=== PATIENT | female | born 1930 | race Caucasian/White ===

== ENCOUNTER 2018-11-24 16:54 | Emergency (ER) | payer MEDICARE, OTHER ==
[~2018-11-24] VITALS: Ht 170.2 cm; Wt 72.6 kg
[2018-11-24] MEDS ORDERED: ASPIRIN 81 MG CHEW (CHILDREN'S ASA) ONE (16:56)
[2018-11-24 17:18] LABS: HEMATOCRIT 42 % (35-52); LYMPHOCYTES % (AUTO) 21 % (12-44); MEAN CORPUSCULAR HEMOGLOBIN 26 PG (25-34); MEAN CORPUSCULAR HGB CONC 31 G/DL (32-36); MEAN CORPUSCULAR VOLUME 84 FL (80-99); MEAN PLATELET VOLUME 10.7 FL (7.4-10.4); MONOCYTES % (AUTO) 6 % (0-12); PLATELET COUNT 310 10^3/uL (130-400); RED CELL DISTRIBUTION WIDTH 17.1 % (10.0-14.5); WHITE BLOOD COUNT 9.7 10^3/uL (4.3-11.0)
[2018-11-24 17:19] LABS: BASOPHILS % (AUTO) 0 % (0-10); EOSINOPHILS # (AUTO) 0.1 10^3/uL (0.0-0.3); EOSINOPHILS % (AUTO) 1 % (0-10); LYMPHOCYTES # (AUTO) 2.1 X 10^3 (1.0-4.0); MONOCYTES # (AUTO) 0.6 X 10^3 (0.0-1.0); NEUTROPHILS # (AUTO) 6.9 X 10^3 (1.8-7.8); NEUTROPHILS % (AUTO) 72 % (42-75)
--- NOTE | 2018-11-24 17:25 | Diagnostic Imaging Report ---
INDICATION: Cough and dyspnea. PA and lateral views of the chest are obtained. There is no previous study for comparison. FINDINGS: There is mild cardiomegaly. There is air trapping bilaterally with prominence of interstitial markings. There is mild blunting of the left costophrenic sulcus. Left anterior chest wall pacemaker device is noted. There is diffuse lumbar and thoracic spondylosis. Degenerative changes are also seen in the shoulder joints. 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 Dictated by: Dictated on workstation # [id number]
--- NOTE | 2018-11-24 17:29 | Diagnostic Imaging Report ---
PROCEDURE: CT head without contrast. TECHNIQUE: Multiple contiguous axial images were obtained through the brain without the use of intravenous contrast. Auto Exposure Controls were utilized during the CT exam to meet ALARA standards for radiation dose reduction. INDICATION: Weakness and dyspnea. FINDINGS: Study is limited by motion artifact. Ventricles and sulci are prominent. There is mild low density within the deep white matter of both cerebral hemispheres with focal region of decreased attenuation in the region of anterior limb of left internal capsule adjacent to head of left caudate nucleus. This may represent lacunar infarct, however, has appearance of subacute or chronic lesion. There is no evidence of intracranial hemorrhage. Calvarium is intact, and the visualized paranasal sinuses are clear. IMPRESSION: Involutional findings in the brain. 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 This is likely subacute or older; however, clinical correlation is recommended. Dictated by: Dictated on workstation # [id number]
--- NOTE | 2018-11-24 17:29 | ED General ---
General Chief Complaint: Respiratory Problems Stated Complaint: SOB,HIGH BP Nursing Triage Note: PATIENT REPORTS SUDDEN ONSET OF SHORTNESS OF BREATH THIS AFTERNOON. Nursing Sepsis Screen: No Definite Risk History of Present Illness Date Seen by Provider: November 24, 2018 Time Seen by Provider: 17:00 Initial Comments 88-year-old female presents with some lightheadedness, dizziness, generalized malaise, shortness of breath. She reports that she knows that this afternoon. That she has a pacemaker was concerned that maybe her pacemaker battery was not working. She had a brief episode yesterday. She denies chest pain. She denies any fever, cough, chills or other systemic complaints. Allergies and Home Medications Allergies Coded Allergies: JOSE Inhibitors (Verified Allergy, Unknown, itching, nausea and vomiting, ) Beta-Blockers (Beta-Adrenergic Bloc (Verified Allergy, Unknown, swelling, headache, 11/24/18) aliskiren (Verified Allergy, Unknown, itching,muscle pain, 11/24/18) warfarin (Verified Allergy, Unknown, rash,itching,dizziness, 11/24/18) Sulfa (Sulfonamide Antibiotics) (Verified Adverse Reaction, Unknown, nausea and vomiting, 11/24/18) Patient Home Medication List Home Medication List Reviewed: Yes Review of Systems Review of Systems Constitutional: No diaphoresis; dizziness, malaise, weakness EENTM: see HPI Respiratory: dyspnea on exertion, short of breath Cardiovascular: No chest pain, No palpitations Gastrointestinal: no symptoms reported Genitourinary: no symptoms reported Musculoskeletal: no symptoms reported Skin: no symptoms reported Past Vzehxbo-Tucsdw-Aeumtf Hx Past Med/Social Hx: Reviewed Nursing Past Med/Soc Hx Patient Social History Alcohol Use: Denies Use Recreational Drug Use: No Smoking Status: Former Smoker Type Used: Cigarettes 2nd Hand Smoke Exposure: No Recent Foreign Travel: No Contact w/Someone Who Travel: No Recent Infectious Disease Expo: No Recent Hopitalizations: No Physical Abuse: No Sexual Abuse: No Mistreated: No Fear: No Seasonal Allergies Seasonal Allergies: No Past Medical History Surgeries: Yes Appendectomy, Joint Replacement, Orthopedic Respiratory: No Cardiac: Yes (PACEMAKER) Neurological: No Genitourinary: No Gastrointestinal: No Musculoskeletal: No Endocrine: No HEENT: No Cancer: No Psychosocial: No Integumentary: No Blood Disorders: No Physical Exam Vital Signs Vital Signs - First Documented 11/24/18 17:00 Temp 97.9 Pulse 85 Resp 22 B/P (MAP) 165/92 (116) Pulse Ox 100 O2 Delivery Room Air Capillary Refill : Less Than 3 Seconds Height, Weight, BMI Height: 5'7.00" Weight: 160lbs. oz. 72.016861pq; BMI Method:Stated General Appearance: No Apparent Distress, WD/WN Eyes: Bilateral Eye PERRL, Bilateral Eye EOMI HEENT: PERRL/EOMI, Moist Mucous Membranes Neck: Supple Respiratory: Chest Non Tender, Lungs Clear, Normal Breath Sounds Cardiovascular: Regular Rate, Rhythm, No Edema, Normal Peripheral Pulses Gastrointestinal: Non Tender, Soft Extremity: Normal Capillary Refill, Normal Inspection Neurologic/Psychiatric: Oriented x3, No Motor/Sensory Deficits, Normal Mood/ Affect Skin: Normal Color, Warm/Dry Progress/Results/Core Measures Suspected Sepsis Recent Fever Within 48 Hours: No Infection Criteria Present: None New/Unexplained Altered Menta: No Sepsis Screen: No Definite Risk SIRS Temperature:97.9 Pulse: 85 Respiratory Rate: 22 Laboratory Tests 11/24/18 17:00: White Blood Count 9.7 Blood Pressure 165 /92 Mean: 116 Laboratory Tests 11/24/18 17:00: Creatinine 1.01, Platelet Count 310, Total Bilirubin 0.6 Results/Orders Lab Results Laboratory Tests Test 11/24/18 17:00 11/24/18 17:30 11/24/18 18:32 11/24/18 19:00 Range/Units White Blood Count 9.7 4.3-11.0 10^3/uL Red Blood Count 5.00 4.35-5.85 10^6/uL Hemoglobin 13.0 11.5-16.0 G/DL Hematocrit 42 35-52 % Mean Corpuscular Volume 84 80-99 FL Mean Corpuscular Hemoglobin 26 25-34 PG Mean Corpuscular Hemoglobin Concent 31 L 32-36 G/DL Red Cell Distribution Width 17.1 H 10.0-14.5 % Platelet Count 310 130-400 10^3/uL Mean Platelet Volume 10.7 H 7.4-10.4 FL Neutrophils (%) (Auto) 72 42-75 % Lymphocytes (%) (Auto) 21 12-44 % Monocytes (%) (Auto) 6 0-12 % Eosinophils (%) (Auto) 1 0-10 % Basophils (%) (Auto) 0 0-10 % Neutrophils # (Auto) 6.9 1.8-7.8 X 10^3 Lymphocytes # (Auto) 2.1 1.0-4.0 X 10^3 Monocytes # (Auto) 0.6 0.0-1.0 X 10^3 Eosinophils # (Auto) 0.1 0.0-0.3 10^3/uL Basophils # (Auto) 0.0 0.0-0.1 10^3/uL Sodium Level 145 135-145 MMOL/L Potassium Level 4.0 3.6-5.0 MMOL/L Chloride Level 101 98-107 MMOL/L Carbon Dioxide Level 28 21-32 MMOL/L Anion Gap 16 H 5-14 MMOL/L Blood Urea Nitrogen 25 H 7-18 MG/DL Creatinine 1.01 0.60-1.30 MG/DL Estimat Glomerular Filtration Rate 52 BUN/Creatinine Ratio 25 Glucose Level 110 H 70-105 MG/DL Calcium Level 9.6 8.5-10.1 MG/DL Corrected Calcium 9.4 8.5-10.1 MG/DL Total Bilirubin 0.6 0.1-1.0 MG/DL Aspartate Amino Transf (AST/SGOT) 20 5-34 U/L Alanine Aminotransferase (ALT/SGPT) 18 0-55 U/L Alkaline Phosphatase 95 40-136 U/L Troponin T 18 H 18 H <=10 NG/L Pro-B-Type Natriuretic Peptide 705.9 H <75.0 PG/ML Total Protein 7.5 6.4-8.2 GM/DL Albumin 4.2 3.2-4.5 GM/DL Glucometer 110 70-110 MG/DL Urine Color YELLOW Urine Clarity CLEAR Urine pH 7.0 5-9 Urine Specific [place] 1.010 L 1.016-1.022 Urine Protein NEGATIVE NEGATIVE Urine Glucose (UA) NEGATIVE NEGATIVE Urine Ketones NEGATIVE NEGATIVE Urine Nitrite NEGATIVE NEGATIVE Urine Bilirubin NEGATIVE NEGATIVE Urine Urobilinogen 0.2 NORMAL MG/DL Urine Leukocyte Esterase 3+ H NEGATIVE Urine RBC (Auto) NEGATIVE NEGATIVE Urine RBC NONE /HPF Urine WBC 5-10 H /HPF Urine Squamous Epithelial Cells 0-2 /HPF Urine Crystals NONE /LPF Urine Bacteria FEW H /HPF Urine Casts NONE /LPF Urine Mucus NONE /LPF Urine Culture Indicated YES My Orders Orders - RASCON,GERALDINE L DO Aspirin Chewable Tablet (Baby Aspirin Ch (11/24/18 16:56) Ct Head Wo (11/24/18 17:00) Cbc With Automated Diff (11/24/18 17:00) Comprehensive Metabolic Panel (11/24/18 17:00) Ua Culture If Indicated (11/24/18 17:00) Accucheck Stat ONCE (11/24/18 17:00) Troponin T (11/24/18 17:00) Probnp Fs (11/24/18 17:00) Ed Iv/Invasive Line Start (11/24/18 17:00) Monitor-Rhythm Ecg Trace Only (11/24/18 17:00) Orthostatic Vital Signs (Adult (11/24/18 17:00) Chest Pa/Lat (2 View) (11/24/18 17:00) Thyroid Stimulating Hormone (11/24/18 17:00) Aspirin Chewable Tablet (Baby Aspirin Ch (11/24/18 17:30) Urine Culture (11/24/18 18:32) Troponin T (11/24/18 19:19) Medications Given in ED Current Medications Medications Dose Ordered Sig/Rohit Route Start Time Stop Time Status Last Admin Dose Admin Aspirin 324 mg ONCE ONCE PO 11/24/18 17:30 11/24/18 17:31 DC 11/24/18 17:00 324 MG Vital Signs/I&O 11/24/18 11/24/18 11/24/18 17:00 18:14 18:15 Temp 97.9 Pulse 85 Resp 22 B/P (MAP) 165/92 (116) 132/72 (92) 157/80 (105) 159/74 (102) Pulse Ox 100 O2 Delivery Room Air Capillary Refill : Less Than 3 Seconds Blood Pressure Mean: 116 Progress Note : Progress Note Patient's symptoms completely resolved while she was here. She does have what appears to be a suspicious urine for UTI. I did have Dr. Westbrook [employer] review her EKG with no concerning changes. I recommend that she follow-up with her [employer] next week and call them Tuesday morning to set appointment time to have her pacemaker evaluated. She will be discharged home with a prescription for Macrobid in stable condition. Departure Impression Primary Impression: Cystitis Additional Impression: Dizziness of unknown cause Disposition: HOME, SELF-CARE Condition: Stable Departure-Patient Inst. Referrals: PASCUAL HERNANDEZ MD (PCP) Primary Care Physician Patient Instructions: Interstitial Cystitis (DC), Dizziness, Nonvertigo, (DC) Scripts Nitrofurantoin Monohyd/M-Cryst (Macrobid 100 mg Capsule) 100 Mg Capsule 1 TAB PO BID for 5 Days, #10 CAP Prov: GERALDINE RASCON DO 11/24/18 GERALDINE RASCON DO November 24, 2018 17:29
[2018-11-24] MEDS ORDERED: ASPIRIN 81 MG CHEW (CHILDREN'S ASA) PO ONE (17:30)
[2018-11-24 18:05] LABS: BILIRUBIN,TOTAL 0.6 MG/DL (0.1-1.0); CALCIUM 9.6 MG/DL (8.5-10.1); CREATININE SERUM 1.01 MG/DL (0.60-1.30)
[2018-11-24 18:06] LABS: ALBUMIN 4.2 GM/DL (3.2-4.5); TOTAL PROTEIN 7.5 GM/DL (6.4-8.2)
[2018-11-24 18:14] VITALS: BP 132/72
[2018-11-24 18:15] VITALS: BP_SYST 157; BP_SYST 159; BP_DIAS 74; BP_DIAS 80
[2018-11-24 18:43] LABS: BILIRUBIN,URINE NEGATIVE (NEGATIVE); CLARITY,URINE CLEAR; COLOR,URINE YELLOW; GLUCOSE, URINE (UA) NEGATIVE (NEGATIVE); KETONES,URINE NEGATIVE (NEGATIVE); LEUKOCYTE ESTERASE ,URINE 3+ (NEGATIVE); NITRITE,URINE NEGATIVE (NEGATIVE); PROTEIN,URINE NEGATIVE (NEGATIVE); UROBILINOGEN,URINE 0.2 MG/DL (NORMAL)
[2018-11-24 18:44] LABS: BACTERIA,URINE FEW /HPF; SQUAMOUS EPITHELIAL CELL,UR 0-2 /HPF
--- NOTE | 2018-11-24 19:00 | NUR ---
assumed care of this patient at this time. introduced self to patient and family, assessment agrees with report given by Diamond HAYNES. will continue to monitor.
[2018-11-24] MEDS ORDERED: NITR-65 PO (19:48)
[2018-11-24 20:20] VITALS: BP 177/92
[2018-11-24] MEDS ORDERED: NITROFURANTOIN 100 MG (MACROBID) CAPSULE PO ONE (20:30)
== END 2018-11-24 20:20 | disposition home or self-care (01) ==
LOC: EDUNIT# 16:54 → ER FS 16:56
DX: N39.0 Urinary tract infection, site not specified (principal); R42 Dizziness and giddiness; Z88.8 Allergy status to other drugs, medicaments and biological substances; Z88.2 Allergy status to sulfonamides; Z95.0 Presence of cardiac pacemaker; Z87.891 Personal history of nicotine dependence; Z90.49 Acquired absence of other specified parts of digestive tract
CPT/HCPCS: 36415; 70450; 71046; 80053; 81000; 82962; 83880; 84443; 84484; 85025; 87088; 93041

== ENCOUNTER 2018-12-08 12:43 | Emergency (ER) | payer MEDICARE ==
[~2018-12-08] VITALS: Ht 170.2 cm; Wt 72.6 kg
[~2018-12-08 12:43] MED LIST: NITR-65 PO
--- OUTSIDE RECORDS SUMMARY | 2018-12-08 12:47 | XMS REPORT | Continuity of Care Document ---
Author Organization Unknown Address Unknown Allergies There is no data. Medications There is no data. Problems There is no data. Procedures There is no data. Results There is no data. Encounters ACCT No. Visit Date/Time Discharge Status Pt. Type Provider Facility Loc./Unit Complaint [id number] 12/04/2018 13:45:00 12/04/2018 23:59:59 CLS Outpatient [facility]
--- NOTE | 2018-12-08 13:08 | ED Respiratory ---
General Stated Complaint: SOA; DIZZINESS Source: patient, family (daughter), EMS Exam Limitations: other (dementia and hard of hearing) History of Present Illness Date Seen by Provider: December 08, 2018 Time Seen by Provider: 12:46 Initial Comments 88 yo F presenting by EMS from home with complaints of dizziness and shortness of breath. She appears anxious as well. she has had problems with dizzines in the last few weeks that has been getting to be more of an issure. Today however it was more severe for her. she was in the ED about 2 weeks ago for exact same complaint. At that time it was found she had a UTI and was treated for it. She had improved symptoms and was doing well until today. She has a history of htn that has been poorly controlled recently and she is anxious and nervous about taking any new medicines and so she did not want to take the new medicine that the industrial roofer helper recommended for her bp. Allergies and Home Medications Allergies Coded Allergies: JOSE Inhibitors (Verified Allergy, Unknown, itching, nausea and vomiting, 11/24/18) Beta-Blockers (Beta-Adrenergic Bloc (Verified Allergy, Unknown, swelling, headache, 11/24/18) aliskiren (Verified Allergy, Unknown, itching,muscle pain, 11/24/18) warfarin (Verified Allergy, Unknown, rash,itching,dizziness, 11/24/18) Sulfa (Sulfonamide Antibiotics) (Verified Adverse Reaction, Unknown, nausea and vomiting, 11/24/18) Home Medications Cephalexin 500 Mg Tablet, 500 MG PO TID Prescribed by: ARIAS GILL on 12/08/18 1547 Meclizine HCl 12.5 Mg Tablet, 12.5 MG PO TID PRN for DIZZINESS Prescribed by: ARIAS GILL on 12/08/18 1547 Patient Home Medication List Home Medication List Reviewed: Yes Review of Systems Review of Systems Constitutional: No chills; dizziness; No fever EENTM: hearing loss (chronic); No ear pain Respiratory: No cough; short of breath Cardiovascular: No chest pain Gastrointestinal: no symptoms reported Genitourinary: no symptoms reported Musculoskeletal: no symptoms reported Skin: no symptoms reported Psychiatric/Neurological: Anxiety Past Gupcgta-Bwsahp-Ktefap Hx Past Med/Social Hx: Reviewed Nursing Past Med/Soc Hx Patient Social History Type Used: Cigarettes 2nd Hand Smoke Exposure: No Recent Hopitalizations: No Seasonal Allergies Seasonal Allergies: Yes Past Medical History Surgeries: Yes Appendectomy, Joint Replacement, Orthopedic Respiratory: No Pulmonary Embolism Cardiac: Yes (PACEMAKER, CHF) Atrial Fibrillation, Hypertension Neurological: No Genitourinary: No Gastrointestinal: No Musculoskeletal: No Endocrine: No HEENT: No Cancer: No Psychosocial: No Integumentary: No Blood Disorders: No Physical Exam Vital Signs - First Documented 12/08/18 12:48 Temp 98.1 Pulse 93 Resp 26 B/P (MAP) 165/96 (119) Pulse Ox 98 O2 Delivery Nasal Cannula O2 Flow Rate 2.00 Capillary Refill : Height: 5'7.00" Weight: 160lbs. oz. 72.482042hd; BMI Method:Stated General Appearance: WD/WN, other (anxious) HEENT: PERRL/EOMI, pharynx normal Neck: non-tender, supple Respiratory: chest non-tender, lungs clear, normal breath sounds, no respiratory distress, no accessory muscle use; No crackles, No rales, No rhonchi, No stridor; other (tachypneic from hyperventilating) Cardiovascular: normal peripheral pulses, regular rate, rhythm, no murmur Gastrointestinal: normal bowel sounds, non tender, soft, no pulsatile mass Extremities: normal range of motion, non-tender, no calf tenderness Neurologic/Psychiatric: alert Skin: normal color, warm/dry Progress/Results/Core Measures Suspected Sepsis SIRS Temperature: Pulse: Respiratory Rate: Laboratory Tests 12/08/18 13:20: White Blood Count 6.7 Blood Pressure / Mean: Laboratory Tests 12/08/18 13:20: Creatinine 0.87, Platelet Count 254, Total Bilirubin 0.7 Results/Orders Lab Results Laboratory Tests Test 12/08/18 13:20 12/08/18 13:40 Range/Units White Blood Count 6.7 4.3-11.0 10^3/uL Red Blood Count 4.71 4.35-5.85 10^6/uL Hemoglobin 12.4 11.5-16.0 G/DL Hematocrit 39 35-52 % Mean Corpuscular Volume 93 80-99 FL Mean Corpuscular Hemoglobin 26 25-34 PG Mean Corpuscular Hemoglobin Concent 32 32-36 G/DL Red Cell Distribution Width 17.1 H 10.0-14.5 % Platelet Count 254 130-400 10^3/uL Mean Platelet Volume 11.3 H 7.4-10.4 FL Neutrophils (%) (Auto) 78 H 42-75 % Lymphocytes (%) (Auto) 14 12-44 % Monocytes (%) (Auto) 6 0-12 % Eosinophils (%) (Auto) 1 0-10 % Basophils (%) (Auto) 1 0-10 % Neutrophils # (Auto) 5.2 1.8-7.8 X 10^3 Lymphocytes # (Auto) 1.0 1.0-4.0 X 10^3 Monocytes # (Auto) 0.4 0.0-1.0 X 10^3 Eosinophils # (Auto) 0.1 0.0-0.3 10^3/uL Basophils # (Auto) 0.1 0.0-0.1 10^3/uL Sodium Level 138 135-145 MMOL/L Potassium Level 3.4 L 3.6-5.0 MMOL/L Chloride Level 97 L 98-107 MMOL/L Carbon Dioxide Level 34 H 21-32 MMOL/L Anion Gap 7 5-14 MMOL/L Blood Urea Nitrogen 19 H 7-18 MG/DL Creatinine 0.87 0.60-1.30 MG/DL Estimat Glomerular Filtration Rate > 60 BUN/Creatinine Ratio 22 Glucose Level 122 H 70-105 MG/DL Calcium Level 9.2 8.5-10.1 MG/DL Corrected Calcium 9.4 8.5-10.1 MG/DL Magnesium Level 2.1 1.8-2.4 MG/DL Total Bilirubin 0.7 0.1-1.0 MG/DL Aspartate Amino Transf (AST/SGOT) 16 5-34 U/L Alanine Aminotransferase (ALT/SGPT) 13 0-55 U/L Alkaline Phosphatase 84 40-136 U/L Troponin T 16 H <=10 NG/L Pro-B-Type Natriuretic Peptide 988.0 H <75.0 PG/ML Total Protein 6.9 6.4-8.2 GM/DL Albumin 3.7 3.2-4.5 GM/DL Urine Color YELLOW Urine Clarity CLEAR Urine pH 7.5 5-9 Urine Specific [place] 1.015 L 1.016-1.022 Urine Protein NEGATIVE NEGATIVE Urine Glucose (UA) NEGATIVE NEGATIVE Urine Ketones NEGATIVE NEGATIVE Urine Nitrite NEGATIVE NEGATIVE Urine Bilirubin NEGATIVE NEGATIVE Urine Urobilinogen 0.2 NORMAL MG/DL Urine Leukocyte Esterase 2+ H NEGATIVE Urine RBC (Auto) NEGATIVE NEGATIVE Urine RBC NONE /HPF Urine WBC 25-50 H /HPF Urine Squamous Epithelial Cells 10-25 H /HPF Urine Crystals NONE /LPF Urine Bacteria FEW H /HPF Urine Casts NONE /LPF Urine Mucus NEGATIVE /LPF Urine Culture Indicated YES My Orders Orders - ARIAS GILL MD Cbc With Automated Diff (12/08/18 13:04) Comprehensive Metabolic Panel (12/08/18 13:04) Chest 1 View Ap/Pa Only (12/08/18 13:04) Albuterol/Ipra Inhalation Soln (Duoneb I (12/08/18 13:15) Magnesium (12/08/18 13:04) Ekg Tracing (12/08/18 13:04) O2 (12/08/18 13:04) Ed Iv/Invasive Line Start (12/08/18 13:04) Monitor-Rhythm Ecg Trace Only (12/08/18 13:04) Troponin T (12/08/18 13:04) Probnp Fs (12/08/18 13:04) Ua Culture If Indicated (12/08/18 13:04) Svn Small Volume Nebulizer (12/08/18 13:04) Urine Culture (12/08/18 13:40) Medications Given in ED Vital Signs/I&O 12/08/18 12/08/18 12/08/18 12:48 12:50 16:10 Temp 98.1 97.5 Pulse 93 74 Resp 26 24 B/P (MAP) 165/96 (119) 161/78 (105) Pulse Ox 98 98 98 O2 Delivery Nasal Cannula Nasal Cannula Room Air O2 Flow Rate 2.00 2.00 Capillary Refill : Progress Note #1: Progress Note obtain labs, ECG and CXR. ECG shows paced rhythm without acute changes compared to previous tracing. Progress Note #2: Progress Note Labs appear stable from previous ED visit. CXR improved from last visit. Urine shows WBC and bacteria. She does have some epithelial cells so it could be a contaminated specimen like last ED visit but it could be a UTI so will cover for urine infection and encouraged pt to see cardiology or at least take the extra bp meds that he wants to improve her BP control. Counseled on follow up and return precautions. Diagnostic Imaging Diagonstic Imaging: Xray Plain Films/CT/US/NM/MRI: chest Comments NAME: SAM [facility]ARC[facility] REC#: [id number] PT STATUS: REG ER : 1930 PHYSICIAN: ARIAS GILL MD ADMIT DATE: 12/08/18/ER FS Signed Date of Exam:12/08/18 CHEST 1 VIEW AP/PA ONLY INDICATION: Dizziness, shortness of breath.. TECHNIQUE: Single view chest 1:20 PM. CORRELATION STUDY: 11/24/2018 FINDINGS: Left-sided unipolar pacemaker with tip at the cardiac apex. Unchanged cardiac enlargement. Vasculature is improved and relatively normal at followup. Lung turner slightly hyperinflated but overall clear. No consolidating infiltrate. Trace effusions and/or pleural thickening however not excluded. IMPRESSION: 1. Stable cardiac enlargement with vasculature improved and near normal on followup. Dictated by: Dictated on workstation # [id number] Dict: 12/08/18 1326 Trans: 12/08/18 1557 MADISYN [id number] Interpreted by: LIZZIE ALEJO DO Electronically signed by: LIZZIE ALEJO DO 12/08/18 1557 Departure Impression Primary Impression: Dizziness Additional Impressions: Cystitis without hematuria Shortness of breath Hypertension Qualified Codes: I10 - Essential (primary) hypertension Disposition: 01 HOME, SELF-CARE Condition: Stable Departure-Patient Inst. Decision time for Depature: 15:40 Referrals: PASCUAL HERNANDEZ MD (PCP/Family) Primary Care Physician Patient Instructions: Dizziness, Nonvertigo, (DC), High Blood Pressure (DC), Shortness of Breath (Dyspnea) (DC), Urinary Tract Infection, Adult (DC) Add. Discharge Instructions: Take the medicine as directed by your industrial roofer helper to help with your blood pressure. Take the antibiotic to treat the urine infection. Make sure you are drinking plenty of water. Follow up with Dr. Hernandez in clinic if you are not improving by next week Scripts Meclizine HCl (Meclizine HCl) 12.5 Mg Tablet 12.5 MG PO TID PRN for DIZZINESS for 10 Days, #30 TAB 0 Refills Prov: ARIAS GILL MD 12/08/18 Cephalexin (Cephalexin) 500 Mg Tablet 500 MG PO TID for Urinary tract infection for 5 Days, #15 TAB 0 Refills Prov: ARIAS GILL MD 12/08/18 ARIAS GILL MD December 08, 2018 13:08
[2018-12-08] MEDS ORDERED: RT-ALBUTEROL/IPRATROPIUM 3 ML (DUONEB) VIAL INH ONE (13:15)
--- NOTE | 2018-12-08 13:29 | Diagnostic Imaging Report ---
INDICATION: Dizziness, shortness of breath.. TECHNIQUE: Single view chest 1:20 PM. CORRELATION STUDY: 11/24/2018 FINDINGS: Left-sided unipolar pacemaker with tip at the cardiac apex. Unchanged cardiac enlargement. Vasculature is improved and relatively normal at followup. Lung turner slightly hyperinflated but overall clear. No consolidating infiltrate. Trace effusions and/or pleural thickening however not excluded. IMPRESSION: 1. Stable cardiac enlargement with vasculature improved and near normal on followup. Dictated by: Dictated on workstation # [id number]
[2018-12-08 14:15] LABS: BASOPHILS % (AUTO) 1 % (0-10); EOSINOPHILS % (AUTO) 1 % (0-10); HEMATOCRIT 39 % (35-52); HEMOGLOBIN 12.4 G/DL (11.5-16.0); LYMPHOCYTES % (AUTO) 14 % (12-44); MEAN CORPUSCULAR HEMOGLOBIN 26 PG (25-34); MEAN CORPUSCULAR HGB CONC 32 G/DL (32-36); MEAN CORPUSCULAR VOLUME 93 FL (80-99); MEAN PLATELET VOLUME 11.3 FL (7.4-10.4); MONOCYTES # (AUTO) 0.4 X 10^3 (0.0-1.0); MONOCYTES % (AUTO) 6 % (0-12); NEUTROPHILS # (AUTO) 5.2 X 10^3 (1.8-7.8); NEUTROPHILS % (AUTO) 78 % (42-75); PLATELET COUNT 254 10^3/uL (130-400); RED CELL DISTRIBUTION WIDTH 17.1 % (10.0-14.5); WHITE BLOOD COUNT 6.7 10^3/uL (4.3-11.0)
[2018-12-08 14:16] LABS: BASOPHILS # (AUTO) 0.1 10^3/uL (0.0-0.1); EOSINOPHILS # (AUTO) 0.1 10^3/uL (0.0-0.3)
[2018-12-08 14:17] LABS: BACTERIA,URINE FEW /HPF; BILIRUBIN,URINE NEGATIVE (NEGATIVE); CLARITY,URINE CLEAR; COLOR,URINE YELLOW; GLUCOSE, URINE (UA) NEGATIVE (NEGATIVE); KETONES,URINE NEGATIVE (NEGATIVE); LEUKOCYTE ESTERASE ,URINE 2+ (NEGATIVE); NITRITE,URINE NEGATIVE (NEGATIVE); PH,URINE 7.5 (5-9); PROTEIN,URINE NEGATIVE (NEGATIVE); UROBILINOGEN,URINE 0.2 MG/DL (NORMAL); WBC,URINE 25-50 /HPF
[2018-12-08 14:23] LABS: ALANINE AMINOTRANSFERASE 13 U/L (0-55); ALBUMIN 3.7 GM/DL (3.2-4.5); ALKALINE PHOSPHATASE 84 U/L (40-136); BILIRUBIN,TOTAL 0.7 MG/DL (0.1-1.0); BUN/CREATININE RATIO 22; CALCIUM 9.2 MG/DL (8.5-10.1); CARBON DIOXIDE 34 MMOL/L (21-32); CHLORIDE 97 MMOL/L (98-107); CREATININE SERUM 0.87 MG/DL (0.60-1.30); GFR ESTIMATED > 60; GLUCOSE 122 MG/DL (70-105); MAGNESIUM 2.1 MG/DL (1.8-2.4); POTASSIUM 3.4 MMOL/L (3.6-5.0); SODIUM 138 MMOL/L (135-145); TOTAL PROTEIN 6.9 GM/DL (6.4-8.2)
[2018-12-08] MEDS ORDERED: CEPH500T PO (15:47)
[2018-12-08] MEDS ORDERED: MECL12.579 PO (15:47)
[2018-12-08 16:10] VITALS: BP 161/78
== END 2018-12-08 16:14 | disposition home or self-care (01) ==
LOC: EDUNIT# 12:43 → ER FS 12:44
DX: R42 Dizziness and giddiness (principal); N30.90 Cystitis, unspecified without hematuria; R06.02 Shortness of breath; I11.0 Hypertensive heart disease with heart failure; I50.9 Heart failure, unspecified; I48.91 Unspecified atrial fibrillation; Z95.0 Presence of cardiac pacemaker; Z88.8 Allergy status to other drugs, medicaments and biological substances; Z88.2 Allergy status to sulfonamides; Z87.440 Personal history of urinary (tract) infections; Z90.49 Acquired absence of other specified parts of digestive tract; Z86.711 Personal history of pulmonary embolism
CPT/HCPCS: 36415; 71045; 80053; 81000; 83735; 83880; 84484; 85025; 87088; 93041

== ENCOUNTER 2020-03-12 15:41 | Emergency (ER) | payer MEDICARE, OTHER ==
[~2020-03-12 15:41] MED LIST changes: +ACET325T38 PO; +CEPH500T PO; +MECL-172 PO; +MULT400C3 PO; +RIVA20TA PO; +TRIA1CAP4 PO
[2020-03-12] MEDS ORDERED: ASPIRIN 325 MG (5 GR) TABLET ONE (16:18)
[2020-03-13 12:37] LABS: HEMATOCRIT 38 % (35-52); HEMOGLOBIN 11.5 G/DL (11.5-16.0); MEAN CORPUSCULAR HEMOGLOBIN 25 PG (25-34); MEAN CORPUSCULAR HGB CONC 31 G/DL (32-36); MEAN CORPUSCULAR VOLUME 81 FL (80-99); MEAN PLATELET VOLUME 10.2 FL (7.4-10.4); PLATELET COUNT 290 10^3/uL (130-400); RED CELL DISTRIBUTION WIDTH 17.8 % (10.0-14.5); WHITE BLOOD COUNT 9.3 10^3/uL (4.3-11.0)
[2020-03-13 12:38] LABS: BASOPHILS % (AUTO) 0 % (0-10); EOSINOPHILS % (AUTO) 1 % (0-10); LYMPHOCYTES % (AUTO) 12 % (12-44); MONOCYTES % (AUTO) 6 % (0-12); NEUTROPHILS # (AUTO) 7.5 X 10^3 (1.8-7.8); NEUTROPHILS % (AUTO) 80 % (42-75)
[2020-03-13 12:39] LABS: INR 1.6 (0.8-1.4); LYMPHOCYTES # (AUTO) 1.1 X 10^3 (1.0-4.0); MONOCYTES # (AUTO) 0.6 X 10^3 (0.0-1.0); PROTHROMBIN TIME PATIENT 19.5 SEC (12.2-14.7)
[2020-03-13 12:40] LABS: ALANINE AMINOTRANSFERASE 12 U/L (0-55); ALKALINE PHOSPHATASE 97 U/L (40-136); BILIRUBIN,TOTAL 0.7 MG/DL (0.1-1.0); BUN/CREATININE RATIO 22; CALCIUM 9.4 MG/DL (8.5-10.1); CARBON DIOXIDE 27 MMOL/L (21-32); CHLORIDE 102 MMOL/L (98-107); CREATININE SERUM 1.02 MG/DL (0.60-1.30); GFR ESTIMATED 51; GLUCOSE 116 MG/DL (70-105); MAGNESIUM 2.1 MG/DL (1.6-2.4); POTASSIUM 3.6 MMOL/L (3.6-5.0); SODIUM 141 MMOL/L (135-145)
[2020-03-13 12:41] LABS: ALBUMIN 3.8 GM/DL (3.2-4.5); TOTAL PROTEIN 6.9 GM/DL (6.4-8.2)
--- NOTE | 2020-03-13 14:20 | Diagnostic Imaging Report ---
NAME: Evelyn Acosta. : 1930. EXAMINATION: Two-view chest on 03/12/2020. HISTORY: Shortness of air, chest pain. COMPARISON: 09/13/2019. FINDINGS: The heart is prominent. The pulmonary vasculature is unremarkable. Chronic changes are seen in both lungs. No infiltrates or effusions are appreciated. The left sided pacemaker is stable. IMPRESSION: Chronic findings with no acute process. Dictated by: Dictated on workstation # [id number]
== END 2020-03-12 17:05 | disposition home or self-care (01) ==
LOC: EDUNIT# 15:41 → ER FS 15:42
DX: R07.89 Other chest pain (principal); F41.1 Generalized anxiety disorder; F03.90 Unspecified dementia, unspecified severity, without behavioral disturbance, psychotic disturbance, mood disturbance, and anxiety; Z95.0 Presence of cardiac pacemaker
CPT/HCPCS: 36415; 71046; 80053; 83735; 83880; 84484; 85025; 85610; 85730; 93005